=== PATIENT | female | born 1985 | race Caucasian/White ===

== ENCOUNTER 2018-01-23 09:53 | Emergency (ER) | payer MEDICAID, SELFPAY ==
[2018-01-23 09:54] VITALS: BP 128/77; PULSE 88; RESP 16; TEMP 36.8; O2SAT 98; BMI 24.1
[2018-01-23 10:04] VITALS: BP 124/89; PULSE 98; RESP 15; O2SAT 100
--- NOTE | 2018-01-23 10:08 | EKG12_ITS ---
Test Reason : PALPS Blood Pressure : / mmHG Vent. Rate : 083 BPM Atrial Rate : 083 BPM P-R Int : 146 ms QRS Dur : 068 ms QT Int : 356 ms P-R-T Axes : 043 061 034 degrees QTc Int : 418 ms Normal sinus rhythm Normal ECG Confirmed by SHANNA ALCALA, VENANCIO ([id number]), editor in chief newspaper [address] ([id number]) on 01/27/2018 1:54:21 PM Referred By: LEONARD Confirmed By:VENANCIO OTERO MD
--- NOTE | 2018-01-23 10:16 | ED.DCSUM_ITS ---
- ER Visit Summary Date of Service: 01/23/18 Chief Complaint: SVT History of Present Illness: The patient is a 32 F who presents with SVT earlier this morning that occurred at home while in a sitting position. She states her heart was beating rapidly for approximate 25 minutes. She was lightheaded and complained of dizziness. There was no diaphoresis. She had mild shortness of breath. She has history of PSVT diagnosed 6 years ago. She has followed up with Dr. Rondon in the past. She has had a couple episodes since the beginning of the year. Of note she took [id number] antihistamine. She denies fever, chills night sweats. Denies any ocular, visual auditory symptoms. She denies any chest tightness or heaviness. She denied cough, dyspnea on exertion, orthopnea or PND. She denies any GI or symptoms. Difficult to assess history because mother was in the room and she wishes mother not to know in the event that she is . After redirecting her she did has complained of nausea. She apparently does not have complaint of breast tenderness. She did make the comment that she has had episodes of PSVT during her pregnancies. She has 5 children. She is on no rate controlling medication. Last normal menses 12 days ago. Please read written note for complete detail Physical Examination: Vital signs are essentially unremarkable. Head is atraumatic normocephalic. Pupils are equal round reactive. Extraocular muscles are intact. TMs are pearly white with landmarks noted. Nares patent with no drainage. Posterior pharynx without erythema or exudate. Uvula is midline. There is no dysphonia or dysphasia. Trachea is midline. There is no stridor with auscultation of the neck. Heart is regular without murmur, gallop or rub. S1 and S2 are normal. Lungs are clear to auscultation with good movement of air bilaterally. Abdomen is soft nontender with normal bowel sounds. There is no asymmetry, swelling, discoloration, leg vein distention, palpable cords or tenderness along the distribution of the deep venous system. Neuro exam is nonfocal. Please read written note for complete detail. Test Results: Serum test was negative. EKG revealed a sinus rhythm rate of 83 and is normal. Emergency Department Course and Treatment: Will obtain a test and an EKG was obtained. Treatment Plan: Since this is occurred several times this year and is a known problem for the past 6 years recommend follow-up with Dr. Rondon since she is having episodes every year. Disposition: Discharged to home with mother and outpatient follow-up with Dr. Ugo Rondon Impression: Paroxysmal supraventricular tachycardia This note was generated with [employer] dictation software. It may contain incorrect words, spelling, and punctuation that were not noted in review of the chart prior to signing ED Disposition - Plan for ED Patient: Disposition: Home or Assisted Living Chief Complaint: Dizziness Instructions: ED Tachycardia Pat PSVT Referrals: Toñito Dumont DO [Primary Care Provider] - Ugo Rondon MD [STAFF PHYSICIAN] - 1 Week Additional Instructions: Recommend not taking [id number] antihistamines.
[2018-01-23 10:48] LABS: Pregnancy, Serum, hCG Quali. NEGATIVE Negative (0-9 Nonpreg)
[2018-01-23 11:33] VITALS: BP 131/70; PULSE 80; RESP 14; O2SAT 98
== END 2018-01-23 11:35 | disposition home or self-care (01) ==
PROVIDERS: Emergency Provider Emergency Medicine; Family Provider Family Medicine; PCP Family Medicine
DX: I47.1 Supraventricular tachycardia (principal)
CPT/HCPCS: 84703; 93005; 99283

== ENCOUNTER → 2018-03-12 14:57 | Outpatient (CLI) | payer MEDICAID, SELFPAY ==
[2018-03-12 15:34] LABS: Absolute Lymphocyte Count 2.02 X10^3/ul (0.83-4.51); Absolute Neutrophil Count 3.2 X10^3/uL (2.0-7.7); Basophil# 0.02 X10^3/uL; Basophil% 0.4 % (0-1); Eosinophil# 0.07 X10^3/uL; Eosinophils% 1.2 % (0-5); Hematocrit 39.9 % (37-47); Hemoglobin 12.9 g/dl (12.0-15.0); Lymphocyte # 2.02 X10^3/ul (4.0); Lymphocyte % 35.8 % (19-41); Mean Corp Hgb Conc 32.3 g/gl (32-36); Mean Corpuscular Hgb 28.9 pg (27.0-32.0); Mean Corpuscular Volume 89.5 fL (81-99); Mean Platelet Vol. 11.1 fl (6.2-12.0); Monocyte# 0.38 X10^3/uL; Monocyte% 6.7 % (0-10); Neutrophil # 3.16 X10^3/uL (2.7-7.7); Neutrophil % 55.9 % (47-70); Platelet Count 214 K/mm3 (150-450); RBC Distribution Width CV 12.8 % (11.6-14.6); RBC Distribution Width SD 41.9 fl (35.1-43.9); Red Blood Count 4.46 M/mm3 (4.2-5.4); White Blood Count 5.7 K/mm3 (4.4-11.0)
[2018-03-12 15:35] LABS: POSITIVE COUNT NO; POSITIVE DIFFERENTIAL NO; POSITIVE MORPHOLOGY NO
[2018-03-12 16:12] LABS: Anion Gap 5 (5-15); BUN 15 mg/dL (7-18); BUN/Creat Ratio 17.3 RATIO (10-20); Calcium,Total 8.7 mg/dL (8.5-10.1); Chloride 109 mmol/L (98-107); Creatinine, Serum 0.87 mg/dL (0.55-1.02); EST Glomerular Filtration Rate 79 mL/min (>60); Est Glom Filt Rate - Afr Amer 96 mL/min (>60); Glucose 93 mg/dL (74-106); Potassium 4.1 mmol/L (3.5-5.1); Sodium Level 141 mmol/L (136-145); Thyroid Stim Hormone (TSH) 0.85 uIU/mL (0.358-3.74)
== END ==
PROVIDERS: Family Provider Family Medicine; PCP Family Medicine; Visit Provider Internal Medicine Cardiovascular Disease
DX: I47.1 Supraventricular tachycardia (principal)
CPT/HCPCS: 36415; 80048; 84443; 85025

== ENCOUNTER → 2018-03-19 12:48 | Outpatient (CLI) | payer MEDICAID, SELFPAY ==
--- NOTE | 2018-03-19 12:50 | ECHOD_ITS ---
Reason For Study: PSVT Procedure This was a 2D Doppler, Color Flow transthoracic echocardiogram. The exam was of adequate technical quality. Exam performed in department. Left Ventricle Normal LV size. Apical false tendon noted. Left ventricular systolic function is normal. The estimated ejection fraction is 65 %. Normal diastology for age. No regional wall motion abnormalities noted. Right Ventricle Normal RV size. Normal systolic function. Atria Normal left atrium. Normal right atrium. No doppler evidence for ASD. Mitral Valve There is no mitral annular calcification. Mild diffuse mitral valve thickening. Equivocal mitral valve prolapse. Trivial mitral valve insufficiency. Tricuspid Valve Normal tricuspid valve. Mild tricuspid valve insufficiency. Right ventricular systolic pressure estimated to be 24 mmHg. Aortic Valve Trisinus/trileaflet aortic valve. Normal aortic valve. Pulmonic Valve The pulmonic valve is not well visualized. Trivial pulmonic valve insufficiency. Great Vessels Normal sized aortic root. Pericardium/Pleural No pericardial effusion. MMode/2D Measurements & Calculations LVIDd: 4.1 cm IVSd: 0.75 cm Ao root diam: 2.6 cm LVIDs: 2.7 cm LVPWd: 0.74 cm RVDd: 3.2 cm FS: 34.7 % LAV(MOD-bp): 35.1 ml EDV(MOD-sp4): 78.5 ml SV(MOD-sp4): 51.1 ml LAV(MOD-bp) Indexed: 19.3 ml/m2 ESV(MOD-sp4): 27.4 ml LAV(MOD-sp2): 27.2 ml EF(MOD-sp4): 65.1 % LAV(MOD-sp4): 43.7 ml LA A4 area: 16.1 cm2 RA A4 area: 14.1 cm2 Time Measurements MV dec time: 0.31 sec Doppler Measurements & Calculations MV E max alfredo: 68.5 cm/sec Lat Peak E' Alfredo: 14.4 cm/sec Med Peak E' Alfredo: 13.1 cm/sec MV A max alfredo: 38.3 cm/sec E/E' lat: 4.8 E/E' med: 5.2 MV E/A: 1.8 Ao V2 max: 118.5 cm/sec LV V1 max: 98.6 cm/sec PA V2 max: 88.6 cm/sec Ao max P.6 mmHg LV V1 max P.9 mmHg PI end-d alfredo: 91.2 cm/sec TR max alfredo: 228.2 cm/sec TR max P.9 mmHg Interpretation Summary Left ventricular systolic function is normal. The estimated ejection fraction is 65 %. Apical false tendon noted. Equivocal mitral valve prolapse. Mild diffuse mitral valve thickening. Trivial mitral valve insufficiency. Mild tricuspid valve insufficiency. Trivial pulmonic valve insufficiency. Right ventricular systolic pressure estimated to be 24 mmHg. Normal diastology for age. Ordering Physician: Ugo Rondon Referring Physician: KASIA SAXENA DO Performed By: Ira Werner, TANIYA, RVT
== END ==
PROVIDERS: Family Provider Family Medicine; PCP Family Medicine; Visit Provider Internal Medicine Cardiovascular Disease
DX: I47.1 Supraventricular tachycardia (principal)
CPT/HCPCS: 93306

== ENCOUNTER → 2018-09-17 11:24 | Outpatient (CLI) | payer MEDICAID, SELFPAY ==
[2018-09-11 09:36] VITALS: BMI 24.7
== END ==
PROVIDERS: Family Provider Family Medicine; PCP Family Medicine; Referring Provider Physician Assistant Medical; Visit Provider Physician Assistant Medical
DX: I47.1 Supraventricular tachycardia (principal)

== ENCOUNTER 2019-04-04 11:29 | Emergency (ER) | payer MEDICAID, SELFPAY ==
[2019-01-28 10:27] VITALS: BMI 26.2
[2019-04-04 11:31] VITALS: BP 122/71; PULSE 66; RESP 18; TEMP 36.4; O2SAT 98; BMI 25.6
--- NOTE | 2019-04-04 11:46 | ED.DCSUM_ITS ---
History of Present Illness Chief Complaint: Flank Pain Detail of Chief Complaint: Left flank pain Informant: Patient, Family Onset: Yesterday Timing: Waxes and wanes Quality: Sharp Location: Under left rib border Current Severity: Mild Maximum Severity: Moderate Narrative: Patient presents with pain along the left lower rib border into the left flank region. Pain started last night and is worse today. Pain is worse with deep breath or yawn. 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 She denies shortness of breath but states she is trying to breathe shallow because pain is worse with deep breath. - Past Medical History (1) H/O left nephrectomy Status: Chronic (2) Paroxysmal SVT (supraventricular tachycardia) Status: Chronic Past Medical History - Allergies and Home Meds Allergies/Adverse Reactions: Allergies guaifenesin [From Entex LA] Adverse Reaction (Verified 04/04/19 11:31) Rash phenylephrine HCl [From Entex LA] Adverse Reaction (Verified 04/04/19 11:31) Rash phenylpropanolamine HCl [From Entex LA] Adverse Reaction (Verified 04/04/19 11:31) Rash Primary Care Physician: Toñito Dumont DO [Primary Care Provider] - Prior records reviewed: Yes Past Medical History: - - Reviewed Surgical History: - - Left nephrectomy Lives: With Family Smoking Status: Never smoker Review of Systems General: Denies: Chills, Fever Eyes: Denies: Visual changes - bilaterally ENT: Denies: Bilateral ear pain Cardiovascular: Denies: Chest pain Respiratory: Denies: Dyspnea Gastrointestinal: Reports: Abdominal pain Genitourinary: Denies: Dysuria, Hematuria Musculoskeletal: Reports: Back pain - Pain in the left flank region Skin: Denies: Rash Neurological: Denies: Headache Endocrine: Denies: Polyuria, Polydipsia Hematologic: Denies: Easy bleeding Physical Exam Vital Signs/Narrative: Vital Signs Temp Pulse Resp BP Pulse Ox 04/04/19 11:31 97.6 F L 66 18 122/71 H 98 Inital Vital Signs reviewed: Yes General: Well nourished, Well developed ENT: Moist mucous membranes Neck: Supple, Nontender Cardiovascular: Regular rate, Regular rhythm Respiratory: No distress, CTA bilaterally, Chest tenderness - Tenderness palpation just beneath the left rib border anterior, lateral, and posterior. Abdomen: Soft, Tender - Tenderness along left inferior rib border as noted. Negative for: Guarding, Rebound tenderness Back: - - As above Extremities: Nontender, No edema Skin: Normal color, No rash Neurological: Alert, Oriented x3 Psychological: Normal affect Diagnostic/Tx/Re-eval Impressions Abdomen/Pelvis CT 04/04/19 12:56 IMPRESSION: 1. No acute inflammatory process or bowel obstruction. 2. Left nephrectomy. Electronically Signed: Manjinder Fitzpatrick MD at 13:58 EDT , Service support , Chest CTA 04/04/19 12:56 IMPRESSION: No central or segmental pulmonary embolism. Electronically Signed: Manjinder Fitzpatrick MD at 13:59 EDT , Service support , 04/04/19 12:56 Abdomen/Pelvis W IV Cont ONLY [CT] Stat CTA Chest W/WO Contrast [CT] Stat Laboratory Results 04/04/19 04/04/19 04/04/19 12:14 12:17 12:17 WBC 8.5 RBC 4.68 Hgb 13.8 Hct 41.6 MCV 88.9 MCH 29.5 MCHC 33.2 RDW Std Deviation 41.2 RDW Coeff of Leonidas 12.7 Plt Count 186 MPV 11.5 Immature Gran % (Auto) 0.200 Neut % (Auto) 67.4 Lymph % (Auto) 23.0 [place] % (Auto) 8.1 Eos % (Auto) 0.7 Baso % (Auto) 0.6 Absolute Neuts (auto) 5.7 Absolute Lymphs (auto) 1.95 Absolute Nucleated RBC 0.00 Nucleated RBC % 0 D-Dimer Quant (PE/DVT) 0.92 H* Sodium Potassium Chloride Carbon Dioxide Anion Gap BUN Creatinine Estim Creat Clear Calc Est GFR (MDRD) Af Amer Est GFR (MDRD) Non-Af BUN/Creatinine Ratio Glucose Calcium Serum , Qual Urine Color Yellow Urine Clarity Sl. Cloudy Urine pH 6.0 Ur Specific [place] 1.015 Urine Protein Negative Urine Glucose (UA) Normal Urine Ketones Negative Urine Occult Blood 25 H Urine Nitrite Negative Urine Bilirubin Negative Urine Urobilinogen Normal Ur Leukocyte Esterase Negative Urine RBC 0 SEEN Urine WBC 0 SEEN Ur Squamous Epith Cells 0-5 SEEN Urine Bacteria 0 SEEN Urine Mucus 0 SEEN 04/04/19 04/04/19 12:17 12:17 WBC RBC Hgb Hct MCV MCH MCHC RDW Std Deviation RDW Coeff of Leonidas Plt Count MPV Immature Gran % (Auto) Neut % (Auto) Lymph % (Auto) [place] % (Auto) Eos % (Auto) Baso % (Auto) Absolute Neuts (auto) Absolute Lymphs (auto) Absolute Nucleated RBC Nucleated RBC % D-Dimer Quant (PE/DVT) Sodium 137 Potassium 3.6 Chloride 107 Carbon Dioxide 26.0 Anion Gap 4 L BUN 14 Creatinine 1.00 Estim Creat Clear Calc 77.09 Est GFR (MDRD) Af Amer 82 Est GFR (MDRD) Non-Af 67 BUN/Creatinine Ratio 14.0 Glucose 84 Calcium 9.0 Serum , Qual NEGATIVE Urine Color Urine Clarity Urine pH Ur Specific [place] Urine Protein Urine Glucose (UA) Urine Ketones Urine Occult Blood Urine Nitrite Urine Bilirubin Urine Urobilinogen Ur Leukocyte Esterase Urine RBC Urine WBC Ur Squamous Epith Cells Urine Bacteria Urine Mucus - Medical Decision Making Patient was given morphine, Zofran, and IV fluids. On repeat evaluation she is resting more comfortably at this time. I explained to her that her testing at this point does not indicate a definitive cause for her symptoms. I did advise her to watch for a rash that she may have pain of shingles that the rashes does not appeared yet. She declined anything stronger for pain at home. If she worsens she is to return here and is encouraged to follow with her primary doctor. ED Disposition - Plan for ED Patient: Disposition: Home or Assisted Living Instructions: ABDOMINAL PAIN, Unknown Cause, (Female) Referrals: Toñito Dumont, [Primary Care Provider] - 3-5 Days if not improving
[2019-04-04] MEDS: Morphine 4 MG/ML Syringe IV (12:16)
[2019-04-04] MEDS: 0.9% Normal Saline 1,000 ML 150 ML IV (12:16)
[2019-04-04] MEDS: Ondansetron 4 MG/2 ML Vial IV (12:16)
[2019-04-04 12:28] LABS: Bacteria 0 SEEN /hpf (None Seen); Mucous, Urine 0 SEEN /hpf (<or=2+); Red Blood Cells-Urine 0 SEEN /hpf (0-5); White Blood Cells 0 SEEN /hpf (0-5)
[2019-04-04 12:34] LABS: Absolute Lymphocyte Count 1.95 X10^3/uL (0.83-4.51); Absolute Neutrophil Count 5.7 X10^3/uL (2.0-7.7); Basophil# 0.05 X10^3/uL; Basophil% 0.6 % (0-1); Eosinophil# 0.06 X10^3/uL; Eosinophils% 0.7 % (0-5); Hematocrit 41.6 % (37-47); Hemoglobin 13.8 g/dL (12.0-15.0); Lymphocyte # 1.95 X10^3/ul (4.0); Mean Corp Hgb Conc 33.2 g/dL (32-36); Mean Corpuscular Hgb 29.5 pg (27.0-32.0); Mean Corpuscular Volume 88.9 fL (81-99); Mean Platelet Vol. 11.5 fl (6.2-12.0); Monocyte# 0.69 X10^3/uL; Monocyte% 8.1 % (0-10); NRBC Flagged by Analyzer 0 % (0-5); Neutrophil % 67.4 % (47-70); Platelet Count 186 K/mm3 (150-450); RBC Distribution Width CV 12.7 % (11.6-14.6); RBC Distribution Width SD 41.2 fl (35.1-43.9); Red Blood Count 4.68 M/mm3 (4.2-5.4); White Blood Count 8.5 K/mm3 (4.4-11.0)
[2019-04-04 12:34] LABS: Color, Urine Yellow (Yellow); Glucose, Dipstick Normal (Normal); Ketone-Dipstick Negative (Negative); Leukocyte Esterase-Dipstick Negative /ul (Negative); Nitrite-Dipstick Negative (Negative); Occult Blood-Urine 25 /ul (Negative); Protein-Dipstick Negative (Negative); Specific Gravity, Urine 1.015 (1.002-1.030); Urine Bilirubin Dipstick Negative (Negative); Urine Clarity Sl. Cloudy (Clear); Urine Urobilinogen Normal (Normal)
[2019-04-04 12:39] LABS: Internal QC Validated? YES +Cl - CLEAR BKGD
[2019-04-04 12:40] LABS: Pregnancy, Serum, hCG Quali. NEGATIVE Negative
[2019-04-04 12:42] LABS: Squamous Epithelial Cells - UA 0-5 SEEN /hpf (5-10)
[2019-04-04 12:43] LABS: D-Dimer Quantitative (DVT/PE) 0.92 FEU/ug/m (0.27-0.49)
[2019-04-04 12:45] LABS: Anion Gap 4 (5-15); BUN 14 mg/dL (7-18); Chloride 107 mmol/L (98-107); EST Glomerular Filtration Rate 67 mL/min (>60); Est Glom Filt Rate - Afr Amer 82 mL/min (>60); Estimated Creatinine Clearance 77.09 ml/min; Glucose 84 mg/dL (74-106); Potassium 3.6 mmol/L (3.5-5.1); Sodium Level 137 mmol/L (136-145)
--- NOTE | 2019-04-04 12:53 | ED.RN ---
LAB CALLS WITH CRITICAL RESULT, D-DIMER 0.92, DR. ROSAS MADE AWARE.
--- NOTE | 2019-04-04 12:56 | CT_ITS ---
STUDY: CTA CHEST REASON FOR EXAM: Female, 33 years old. Chest pain, left upper quadrant abdominal pain RADIATION DOSAGE (If Supplied By Facility): CTDIvol = ( 12.93 ) mGy, DLP = ( 1034.39 ) mGycm TECHNIQUE: The examination was performed with the intravenous administration of 75 IV Isovue 300. Post-processing of the angiographic images was performed, with multiplanar reformation and 3D reconstruction. Individualized dose optimization techniques were used for this CT. COMPARISON: None. FINDINGS: Normal enhancement of the main pulmonary artery and right and left pulmonary arteries. Normal enhancement of the bilateral peripheral pulmonary arteries. There is no demonstrated pulmonary embolism. Normal thoracic aorta and visualized great vessels. There is no demonstrated aortic dissection. Normal heart and pericardium. Normal mediastinum. Normal hilar regions. Normal visualized trachea and bronchi. The lungs are well expanded. Normal pulmonary parenchyma. Normal pleura. Normal chest wall structures. Normal osseous structures. Upper abdomen described on abdomen/pelvis CT, performed concurrently. CT/CTA Chest W/WO Contrast IMPRESSION: No central or segmental pulmonary embolism. Electronically Signed: Manjinder Fitzpatrick MD at 13:59 EDT , Service support ,
--- NOTE | 2019-04-04 12:56 | CT_ITS ---
STUDY: CT ABDOMEN AND PELVIS WITH CONTRAST REASON FOR EXAM: Female, 33 years old. Left upper quadrant pain RADIATION DOSAGE (If Supplied By Facility): CTDIvol = ( 12.93 ) mGy, DLP = ( 1034.39 ) mGycm TECHNIQUE: Transaxial images were obtained from the dome of the diaphragm to the symphysis pubis without oral contrast. 75 IV Isovue 300 was administered. Sagittal and coronal images were reconstructed. Individualized dose optimization techniques were used for this CT. COMPARISON: None. FINDINGS: The visualized lung bases are unremarkable. The visualized portions of the heart are within normal limits. Normal liver. Normal gallbladder and extrahepatic biliary system. Normal spleen. Normal pancreas. Normal bilateral adrenal glands. Normal right kidney. Left kidney is surgically absent. Normal visualized stomach. Normal small intestine. Normal colon. The appendix is visualized and appears normal. Normal abdominal aorta. Normal inferior vena cava. Normal retroperitoneum. Normal urinary bladder. Normal abdominal wall. Normal osseous structures. CT/Abdomen/Pelvis W IV Cont ONLY IMPRESSION: 1. No acute inflammatory process or bowel obstruction. 2. Left nephrectomy. Electronically Signed: Manjinder Fitzpatrick MD at 13:58 EDT , Service support ,
[2019-04-04 14:32] VITALS: BP 108/54; PULSE 77; RESP 18; O2SAT 100
[2019-04-04 15:03] VITALS: BP 109/72; PULSE 69; RESP 14; O2SAT 100
== END 2019-04-04 15:07 | disposition home or self-care (01) ==
PROVIDERS: Emergency Provider Emergency Medicine; Family Provider Family Medicine; PCP Family Medicine
DX: R10.9 Unspecified abdominal pain (principal); I47.1 Supraventricular tachycardia; Z90.5 Acquired absence of kidney
CPT/HCPCS: 71275; 74177; 80048; 81001; 84703; 85025; 85379; 96361; 96374; 96375; 99283; J7030; Q9967; A4216; J2405

== ENCOUNTER → 2022-05-09 | Outpatient (CLI) | payer MEDICAID, SELFPAY ==
--- NOTE | 2022-05-09 12:48 | ECHOD_ITS ---
Reason For Study: MVP Procedure This was a 2D Doppler, Color Flow transthoracic echocardiogram. Exam performed in department. Left Ventricle Normal LV size. Left ventricular systolic function is normal. The estimated ejection fraction is 60 %. No evidence for diastolic dysfunction. No regional wall motion abnormalities noted. Right Ventricle Normal RV size. Normal systolic function. Atria Normal left atrium. Normal right atrium. No doppler evidence for ASD. Mitral Valve There is no mitral annular calcification. Equivocal mitral valve prolapse. Trivial eccentric mitral valve insufficiency. Tricuspid Valve Normal tricuspid valve. Trivial tricuspid valve insufficiency. Right ventricular systolic pressure estimated to be 22 mmHg. Aortic Valve Normal aortic valve. Trisinus/trileaflet aortic valve. Pulmonic Valve Normal pulmonic valve. Trivial pulmonic valve insufficiency. Great Vessels Normal sized aortic root. Pericardium/Pleural No pericardial effusion. MMode/2D Measurements & Calculations LVIDd: 4.5 cm IVSd: 0.60 cm Ao root diam: 2.8 cm LVIDs: 3.0 cm LVPWd: 0.72 cm LA dimension: 2.8 cm RVDd: 3.2 cm FS: 33.2 % LAV(MOD-bp): 34.8 ml LA A4 area: 16.7 cm2 RA A4 area: 12.7 cm2 LAV(MOD-bp) Indexed: 18.4 ml/m2 LAV(MOD-sp2): 28.4 ml LAV(MOD-sp4): 39.4 ml Time Measurements MV dec time: 0.19 sec Doppler Measurements & Calculations MV E max alfredo: 81.1 cm/sec Lat Peak E' Alfredo: 14.9 cm/sec Med Peak E' Alfredo: 13.9 cm/sec MV A max alfredo: 45.2 cm/sec E/E' lat: 5.5 E/E' med: 5.9 MV E/A: 1.8 MV V2 max: 93.1 cm/sec MV P1/2t max alfredo: 93.1 cm/sec Ao V2 max: 127.0 cm/sec MV max P.5 mmHg MV P1/2t: 68.7 msec Ao max P.5 mmHg MV V2 mean: 49.0 cm/sec MV dec slope: 396.6 cm/sec2 Ao V2 mean: 86.6 cm/sec MV mean P.2 mmHg MVA(P1/2t): 3.2 cm2 Ao mean P.5 mmHg MV V2 VTI: 27.9 cm Ao V2 VTI: 28.2 cm LV V1 max: 110.5 cm/sec PA V2 max: 65.6 cm/sec TR max alfredo: 215.2 cm/sec LV V1 max P.9 mmHg TR max P.6 mmHg LV V1 mean P.6 mmHg LV V1 mean: 75.9 cm/sec LV V1 VTI: 24.8 cm ECHO/Echo Complete Interpretation Summary Left ventricular systolic function is normal. The estimated ejection fraction is 60 %. Equivocal mitral valve prolapse. Trivial eccentric mitral valve insufficiency. Trivial tricuspid valve insufficiency. Trivial pulmonic valve insufficiency. Right ventricular systolic pressure estimated to be 22 mmHg. No evidence for diastolic dysfunction. Ordering Physician: Paulette Kebede Referring Physician: Paulette Kebede Performed By: Pedro Bland RCS
== END | disposition home or self-care (01) ==
LOC: CVS 12:47
PROVIDERS: PCP Family Medicine; Referring Provider Physician Assistant Medical; Visit Provider Physician Assistant Medical
DX: I34.1 Nonrheumatic mitral (valve) prolapse (principal)
CPT/HCPCS: 93306

== ENCOUNTER → 2022-08-30 | Outpatient (CLI) | payer MEDICAID, SELFPAY ==
--- NOTE | 2022-08-30 13:53 | ECHOL_ITS ---
Reason For Study: r/o post ablation pericardial effusion Procedure This was a limited 2D transthoracic echocardiogram. NO DEFINITY-Left Nephrectomy. Limited views were obtained. Exam performed in department. Left Ventricle Normal LV size. Left ventricular systolic function is normal. The estimated ejection fraction is 65 %. Unable to assess diastolic dysfunction. No regional wall motion abnormalities noted. Right Ventricle Normal RV size. Normal systolic function. Atria Normal left atrium. Normal right atrium. No doppler evidence for ASD. Mitral Valve There is no mitral annular calcification. Normal mitral valve. Tricuspid Valve Normal tricuspid valve. Trivial tricuspid valve insufficiency. Right ventricular systolic pressure estimated to be 22 mmHg. Aortic Valve Trisinus/trileaflet aortic valve. Normal aortic valve. Pulmonic Valve The pulmonic valve is not well visualized. Pericardium/Pleural No pericardial effusion. MMode/2D Measurements & Calculations LVIDd: 4.0 cm IVSd: 0.83 cm LVIDs: 2.8 cm LVPWd: 0.74 cm RVDd: 3.1 cm FS: 30.6 % Doppler Measurements & Calculations TR max sanjana: 215.2 cm/sec TR max P.5 mmHg ECHO/Echo, Limited Study Interpretation Summary Limited views were obtained. Left ventricular systolic function is normal. The estimated ejection fraction is 65 %. Trivial tricuspid valve insufficiency. No pericardial effusion. Right ventricular systolic pressure estimated to be 22 mmHg. Unable to assess diastolic dysfunction. Ordering Physician: Ugo Rondon Referring Physician: Toñito Dumont Performed By: Pedro Bland RCS
[2022-08-30 16:49] LABS: Anion Gap 6 (5-15); BUN 10 mg/dL (7-18); BUN/Creat Ratio 10.7 RATIO (10-20); Calcium,Total 9.1 mg/dL (8.5-10.1); Chloride 107 mmol/L (98-107); Creatinine, Serum 0.93 mg/dL (0.55-1.02); EST Glomerular Filtration Rate 72 mL/min (>60); Est Glom Filt Rate - Afr Amer 87 mL/min (>60); Glucose 95 mg/dL (74-106); Potassium 3.8 mmol/L (3.5-5.1); Sodium Level 139 mmol/L (136-145)
== END | disposition home or self-care (01) ==
PROVIDERS: PCP Family Medicine; Referring Provider Internal Medicine Cardiovascular Disease; Visit Provider Internal Medicine Cardiovascular Disease
DX: I34.1 Nonrheumatic mitral (valve) prolapse (principal); Z90.5 Acquired absence of kidney; Z98.890 Other specified postprocedural states; Z86.79 Personal history of other diseases of the circulatory system
CPT/HCPCS: 36415; 80048; 93308